=== PATIENT | male | born 2005 | race Caucasian/White ===

== ENCOUNTER 2025-10-17 09:05 | Emergency (ER) | payer OTHER, SELFPAY ==
[2025-10-17 09:23] VITALS: BP 130/69; PULSE 64; RESP 18; TEMP 36.2; O2SAT 100
--- NOTE | 2025-10-17 09:40 | ED_ITS ---
HPI - URI/Sore Throat General Chief Complaint: Upper Respiratory Infection Stated Complaint: sinus issues, puss in eyes Time Seen by Provider: 10/17/25 09:40 Source: patient Mode of arrival: ambulatory Limitations: no limitations History of Present Illness HPI Narrative: [age] year male presents with complaint of right ear pain since yesterday. Nasal congestion for 1 week. Taking [id number] DayQuil with no relief. Afebrile. All systems reviewed and negative except as noted above. Related Data Allergies Allergy/AdvReac Type Severity Reaction Status Date / Time No Known Allergies Allergy Verified 10/17/25 09:26 PMFSH Comments At time of signature, agree with nursing past medical, surgical, social and family history. There is no relevant family history pertinent to the presenting complaint. Exam Narrative: GENERAL: This is a well-nourished, well-developed patient, in no apparent distress. HEAD: normocephalic, atraumatic. EYES: PERRL. Sclera clear/white. Vision is grossly intact. EARS: External ears normal, auditory canals clear and without drainage, Right TM is erythematous with retraction. Left TM normal. Hearing grossly intact. NOSE: External nose normal with Clear nasal drainage, mild congestion THROAT: Mucous membranes moist, posterior pharynx clear. NECK: Neck supple, non-tender without lymphadenopathy, masses or thyromegaly. CARDIOVASCULAR: Regular rate and rhythm without murmurs, gallops, or rubs. RESPIRATORY: Clear to auscultation. Breath sounds equal bilaterally. No wheezes, rales, or rhonchi. SKIN: warm, Dry, intact with no suspicious lesions or rash, good texture and turgor. NEURO: awake, alert, and oriented to person, place and time. There were no obvious focal neurologic abnormalities. EXTREMITIES: No joint tenderness, effusion, or edema noted. Course Course Level of Care: Express Care Visit Vital Signs Vital signs: Vital Signs Temperature 36.2 C L 10/17/25 09:23 Pulse Rate 64 10/17/25 09:23 Respiratory Rate 18 10/17/25 09:23 Blood Pressure 130/69 10/17/25 09:23 Pulse Oximetry 100 10/17/25 09:23 Temperature 36.2 C L 10/17/25 09:23 Pulse Rate 64 10/17/25 09:23 Respiratory Rate 18 10/17/25 09:23 Blood Pressure 130/69 10/17/25 09:23 Pulse Oximetry 100 10/17/25 09:23 reviewed MDM MDM Narrative Medical decision making narrative: will treat right otitis media with amoxicillin. Patient agrees with plan of care. Patient is alert, nontoxic. Differential Diagnosis Differential Diagnosis: Differential diagnostic considerations for upper respiratory infection include upper respiratory infection, croup, otitis media, sinusitis, viral infection, bronchitis, influenza, pharyngitis, strep, uvulitis.? Discharge Plan Discharge Clinical Impression: Acute right otitis media Patient Disposition: Home Condition: Stable Instructions: Antibiotic Form, Ear Infection (ED) Additional Instructions: take antibiotic as prescribed until gone. Purchase an qknd-sxw-ntpelih nasal spray such as Flonase or Nasacort. Take as directed on packaging. Purchase inqb-mvk-uplqsel pseudoephedrine and take as directed on packaging. This medication is found by the pharmacist. See your doctor if symptoms are not improving. Patient Language: [place] Prescriptions: New amoxicillin 875 mg tablet 875 mg PO Q12H 10 Days Qty: 20 0RF Follow-up/Referrals: PHYSICIAN NOT ON STAFF,NONSTAFF [Primary Care Provider] Time of Disposition: 09:46
== END 2025-10-17 09:52 | disposition home or self-care (01) ==
PROVIDERS: Emergency Provider Nurse Practitioner Family
DX: H66.91 Otitis media, unspecified, right ear (principal)
CPT/HCPCS: 99203; G0463